=== PATIENT | male | born 1970 | race African-American/Black ===

== ENCOUNTER 2017-01-25 09:55 | Observation (INO) | payer MEDICAID, SELFPAY ==
[2017-01-25 10:50] LABS: #Eosinphils 0.3 thou/uL (0.0-0.7); #Lymphocytes 1.3 thou/uL (1.20-3.40); #Monocytes 0.6 thou/uL (0.11-0.59); #Neutrophils 6.1 thou/uL (1.40-6.50); %Basophils 0.3 % (0.0-1.0); %Eosinophils 3.2 % (0.0-10.0); %Lymphocytes 15.7 % (21.0-51.0); %Monocytes 6.7 % (0.0-10.0); Hematocrit 50.4 % (42.0-52.0); Mean Platelet Volume 6.8 fL (7.4-10.4); White Blood Cell (WBC) Count 8.3 thou/uL (4.8-10.8)
[2017-01-25 10:53] LABS: ALT (SGPT) 21 U/L (8-55); AST (SGOT) 25 U/L (5-34); Alkaline Phosphatase 50 U/L (40-150); Anion Gap 11 mmol/L (10-20); BUN (Urea Nitrogen) 11 mg/dL (8.9-20.6); Bilirubin, Total 0.7 mg/dL (0.2-1.2); CK (CPK) 416 U/L (30-200); Calc. Creatinine Clearance 0 mL/min (70-130); Calcium 9.5 mg/dL (7.8-10.44); Carbon Dioxide 28 mmol/L (22-29); Chloride 102 mmol/L (98-107); Estimated GFR-MDRD Greater than 90; Globulin 3.1 g/dL (2.4-3.5); Lipase 33 U/L (8-78); Protein, Total 7.1 g/dL (6.0-8.3)
[2017-01-25] MEDS ORDERED: Aspirin 325 MG TAB ONE (10:54)
[2017-01-25] MEDS ORDERED: Lorazepam 2 MG/ML VIAL ONE (10:54)
--- NOTE | 2017-01-25 10:54 | RAD ---
FRONTAL VIEW CHEST: Date: 01/25/17 No prior comparison. INDICATION: Chest pain. FINDINGS: No consolidation, effusion, or pneumothorax. Cardiac silhouette is accentuated by portable technique . IMPRESSION: No focal consolidation. POS: ARACELY
[2017-01-25 10:59] LABS: Troponin I Less than 0.010 ng/mL (< 0.028)
[2017-01-25] MEDS ORDERED: Aspirin 300 MG Suppository PR SCH (13:00)
[2017-01-25] MEDS ORDERED: Ondansetron ODT 4 MG TAB PO PRN (13:00)
[2017-01-25] MEDS ORDERED: Acetaminophen 325 MG TAB PO PRN (13:00)
[2017-01-25] MEDS ORDERED: Lorazepam 2 MG/ML VIAL SLOW IVP PRN (13:00)
[2017-01-25 13:20] VITALS: BMI 27.6
[2017-01-25] MEDS: Sodium Chloride 0.9% 1,000 ML IV SCH ×2 (13:23→20:21)
--- NOTE | 2017-01-25 13:57 | HP-2 ---
RESIDENT: Silvestre Haile M.D. ATTENDING: Dr. Silvestre Penn PRIMARY CARE PHYSICIAN: None, city call. CODE STATUS: Unable to obtain secondary to the patient being only arousal for short periods of time secondary to Ativan administration. We will go ahead and place the patient as a full code until ab le to reevaluate the patient further. CHIEF COMPLAINT: Chest pain. HISTORY OF PRESENT ILLNESS: The patient is a 46-year-old male who presents to the ER with his signi ficant other for evaluation of substernal chest pain with associated left arm numbness that occurred at rest at approximately 0800 this morning. The patient is status post administration of Ativan fo r recurrent episode of chest pain in the ER and will only awake and answer questions for short perio ds of time, so the majority of history was taken from ER physician and significant other who is pres ent in room. Reportedly the patient had a recent falling off with his drug use and has been using c ocaine and has been drinking alcohol for approximately the past 48 hours. Per significant other the patient has not slept very much at all during this time. Unsure of any other drug ingestion. Wayne carlota, the patient does have a history of meth use. The patient otherwise has a history of hyperlipid emia, but no history of diabetes, hypertension, or other cardiac history. The patient has no family history of cardiac disease. The chest pain was intermittent in nature, unable to give exact timefr wanda of duration, but has occurred twice since the initial onset. The patient when he is able to awo graham up denies any current chest pain or shoulder pain. In the ER, the patient received 325 mg of aspirin and 1 mg of Ativan. PAST MEDICAL HISTORY: 1. Hyperlipidemia. 2. Substance abuse. MEDICATIONS: None. PAST SURGICAL HISTORY: Appendectomy. FAMILY HISTORY: Noncontributory. No family history of cardiac disease. SOCIAL HISTORY: Significant for illicit drug use with cocaine, meth and amphetamines. The patient smokes approximately 1 cigarette per day and has a significant history of alcohol use. REVIEW OF SYSTEMS: Unable to be obtained at this time secondary to the patient not being able to st ay awake long enough to get adequate review of systems secondary to IV Ativan administration. PHYSICAL EXAMINATION: VITAL SIGNS: Blood pressure 138/94, pulse 77, respiratory rate 15, satting 95% on room air, T-max 9 8.1 degrees Fahrenheit. Weight current 97.07 kg. GENERAL: No acute distress. The patient is alert and oriented x3 when he wakes up; however, only a ble to answer questions for a short period of time before falling back to sleep secondary to medicat ion administration as he was alert and oriented x3 per ER physician prior to medication. EYES: PERRLA, EOMI. Conjunctivae within normal limits. ENT: Moist mucous membranes. CARDIOVASCULAR: Regular rhythm, no murmur. Equal pulses bilaterally. RESPIRATORY: Clear to auscultation bilaterally, no wheezing, rales or rhonchi. Unlabored respirati ons. ABDOMEN: Nontender, nondistended. No guarding. Bowel sounds x4. EXTREMITIES: No swelling, equal movements bilaterally. Evaluation of the shoulder for possible inj ury negative with negative scan. Negative pain with passive range of motion and full range of motio n. SKIN: No rashes or lesions. NEUROLOGIC: Cranial nerves II-XII intact bilaterally. No focal deficits. PSYCH: When patient is awake, appears appropriate, poor judgment. LABORATORY DATA: White blood cells 8.3, hemoglobin 16.3, hematocrit 50.4, platelets 297. Sodium 13 7, potassium 3.9, chloride 102, bicarbonate 28, BUN 11, creatinine 0.99, glucose 95, albumin 4.0, to domenica protein 7.1, total bilirubin 0.7, calcium 9.5, AST 25, ALT 21, alkaline phosphatase 50. Cardiac enzymes: CK 416, CK-MB 4.3, troponin I less than 0.010, lipase 33. EKG: Normal sinus rhythm with slightly poor R-wave progression in the lateral leads, but no signifi cant ST segment changes or signs of ischemia. IMAGING: Chest x-ray, NAD. ASSESSMENT AND PLAN: A 46-year-old male with: 1. Cocaine-induced chest pain rule out ischemia. Likely intermittent chest pain secondary to vaso spasm with known cocaine use. We will go ahead and check a UDS, both urine and serum to evaluate fo r other pill ingestion since patient has a history of methamphetamine use as well and unable to get adequate answers secondary to patient's current status from the Ativan administration. We will admi t to tele observation for now and trend troponins, CK-MBs and EKGs x3 to evaluate for possible ische nicole. We will continue on aspirin 81 mg every day, and check a fasting lipid panel, TSH, and A1c. P atient will have a lower dose of Ativan 0.5 mg p.r.n. for recurrent chest pain, tachycardia, and hyp ertension which will be a contaminant with a repeat episode of vasospasm. We will go ahead and cons ult case management to initiate possible options for outpatient rehab if the patient is interested i n this. We will consider consulting [facility] as well once the patient is medically stable for possible inpatient rehab as the patient is unfunded. We will place a Nicoderm patch. Patient does smoke. E ncourage cessation of drug use to prevent further episodes. 2. Elevated CK. Likely be secondary to #3, we will go ahead and repeat a CK in about 6 hours to en sure the patient is in the early stages of rhabdomyolysis with a contaminant cocaine use. 3. Drug use. We will check serum UDS as well as urine drug screen and give patient counseling on c essation as well as consults as needed for case management and MR if indicated. 4. Code status. Unable to obtain code status at this time; however, will revisit this once the pat ient's Ativan use has weaned off and he is more coherent. We will keep the patient full code status until we are able to clarify this. Symptomatic medications will be provided. History and physical exam as well as management was discussed with Dr. Penn.
[2017-01-25 14:14] LABS: Amphetamine Detected (NotDetected); Methadone Not Detected (NotDetected); Methamphetamine Detected (NotDetected)
[2017-01-25 14:31] LABS: Acetaminophen Less than 6.0 mcg/mL (10.0-30.0); Cholesterol 178 mg/dl (< 200 Desired); LDL Cholesterol, Calculated 89 mg/dL; Salicylate Less than 8.0 mg/dL (15.0-30.0)
[2017-01-25 14:58] LABS: Troponin I 0.012 ng/mL (< 0.028)
[2017-01-25 17:33] LABS: Troponin I Less than 0.010 ng/mL (< 0.028)
[2017-01-25] MEDS ORDERED: Nicotine 7 MG PATCH TD SCH (21:00)
--- NOTE | 2017-01-25 21:25 | HP ---
DATE OF ADMISSION: 01/23/2017 CHIEF COMPLAINT: Chest pain. HISTORY OF PRESENT ILLNESS: This is a 46-year-old male with past history of cocaine use disorder, t obacco use disorder, depression and anxiety who presents after ingestion of cocaine subsequently dev eloped a substernal 8/10 chest pain that he describes as pressure that radiated to the left shoulder with associated left arm numbness. He was not nauseous, but he did say he was a little bit sweaty at that time. He had a subjective sensation of dyspnea later on after the episode they occurred whe n he was just sitting on the bus. Currently, he says he is chest pain free. No shortness of breath or other complaint. In the ED, he was given Ativan and subsequently seemed to improve. REVIEW OF SYSTEMS: A 12-point review of systems is completed and negative except for as per HPI. P lease see the resident's H\T\P for full listing. PAST MEDICAL HISTORY: Positive for cocaine use disorder, tobacco use disorder, depression, anxiety, and hyperlipidemia. PAST SURGICAL HISTORY: Positive for appendectomy. FAMILY HISTORY: Positive for coronary artery disease in several grandparents, but no in the immedia te family. MEDICATIONS: None. ALLERGIES: No known drug allergies. SOCIAL HISTORY: Positive for tobacco and ethanol use. He has been cocaine free for a while and vasu dently has used just recently. PHYSICAL EXAMINATION: VITAL SIGNS: Temperature 98.4, pulse 75, respirations 18, O2 sat 96% on room air, BP 129/79. GENERAL: Constitutionally sleeping comfortably in bed, easily arousable. HEENT: Eyes: No icterus or injection. Pinna normal. Nares patent. Moist mucous membranes. CARDIOVASCULAR: Regular rate and rhythm without murmur, gallop or rub. No carotid bruit. No perip heral edema. LUNGS: Clear to auscultation bilaterally without increased work of breathing. No wheezes, rales or rhonchi. GASTROINTESTINAL: Bowel sounds positive. Nontender to palpation. No palpable organomegaly. GENITOURINARY: Deferred. MUSCULOSKELETAL: Without deformity or contracture. SKIN: He has several old scars including healed appendectomy scar. NEUROLOGIC: Cranial nerves II-XII intact and symmetric. Motor 5/5 throughout. Sensation intact to light touch in all 4 extremities. PSYCHIATRIC: Positive for depression and anxiety. Alert and oriented x4. Mood and affect appear t o be appropriate with current medical condition and social stressors. LABORATORY DATA: White blood cell count 8.3, hemoglobin 16.3, platelets 297. CMP normal with a cre atinine of 0.99, creatinine kinase of 416. Initial troponin less than 0.01. Chest x-ray no acute p rocess, which I have reviewed it personally. ASSESSMENT AND PLAN: This 46-year-old male with, 1. Suspect cocaine-induced chest pain. However, we will go ahead and rule out for ACS and stress i n the morning. Place him on aspirin hydrate and statin if necessary. 2. Rhabdomyolysis, suspect secondary to cocaine use. However, we will trend hydrate and monitor cr eatinine and CK levels and statin if tolerated. We will send a TSH in the morning. 3. Obesity. Recommend weight loss and exercise. 4. Tobacco use. Recommend cessation counseled in detail. He can use the nicotine patch after seco nd negative troponin. 5. Cocaine use disorder. Recommend cessation and counseling. 6. Deep venous thrombosis prophylaxis with Lovenox. 7. Gastrointestinal prophylaxis with diet.
[2017-01-26] MEDS: Sodium Chloride 0.9% 1,000 ML IV SCH (02:54)
[2017-01-26 05:22] LABS: Anion Gap 10 mmol/L (10-20); BUN (Urea Nitrogen) 14 mg/dL (8.9-20.6); Calc. Creatinine Clearance 136 mL/min (70-130); Calcium 9.4 mg/dL (7.8-10.44); Carbon Dioxide 26 mmol/L (22-29); Chloride 106 mmol/L (98-107); Estimated GFR-MDRD Greater than 90
--- NOTE | 2017-01-26 08:24 | PDOC.FM ---
- Subjective Subjective: DAXA overnight, no further episodes of chest pain. Pt states he wants to persue outpatient rehab. VSS, afebrile. NSR on tele overnight. - Objective MAR Reviewed: Yes Vital Signs & Weight: Vital Signs (12 hours) Temp Pulse Resp BP Pulse Ox 01/26/17 07:48 98.9 F 71 16 107/65 98 01/26/17 04:00 98.4 F 55 L 16 100/56 L 97 01/26/17 03:57 95 Weight Weight 93.157 kg I&O: 01/25/17 01/26/17 01/27/17 06:59 06:59 06:59 Intake Total 3962 Output Total 300 Balance 3662 Result Diagrams: 01/25/17 10:20 01/26/17 04:09 <Silvestre Haile - Last Filed: 01/26/17 08:22> - Objective Vital Signs & Weight: Vital Signs (12 hours) Temp Pulse Resp BP Pulse Ox 01/26/17 07:48 98.9 F 71 16 107/65 98 01/26/17 04:00 98.4 F 55 L 16 100/56 L 97 01/26/17 03:57 95 Weight Weight 93.157 kg I&O: 01/25/17 01/26/17 01/27/17 06:59 06:59 06:59 Intake Total 3962 Output Total 300 Balance 3662 Result Diagrams: 01/25/17 10:20 01/26/17 04:09 <Ender Jaffe - Last Filed: 01/26/17 10:20> Phys Exam - Physical Examination Constitutional: NAD Respiratory: no wheezing, clear to auscultation bilateral Cardiovascular: RRR Gastrointestinal: positive bowel sounds Musculoskeletal: no edema Neurological: normal sensation, moves all 4 limbs Lymphatic: no nodes Psychiatric: normal affect, A&O x 3 Skin: cap refill <2 seconds <Silvestre Haile - Last Filed: 01/26/17 08:22> Dx/Plan (1) Chest pain Code(s): R07.9 - CHEST PAIN, UNSPECIFIED Status: Acute Qualifiers: Chest pain type: other chest pain Qualified Code(s): R07.89 - Other chest pain; R07.8 - Other chest pain Plan: Likely 2/2 cocaine induced vasospasm in setting of illicit drug use Pt NSR w/o signs of ischemia on EKG x3 and normal trop and CK-mb x 3 No recurrence of chest pain Lipids WNL, not in a statin benefit group w/ ASCVD 10 year at 4.6% Cont. w/ ASA 81 mg q day Counseled on cessation of drug use to prevent recurrence. Pt being seen by [facility] and CM consult for outpatient rehab possibilities HEART score of 1 w/ likely source in cocaine use for chest pain (2) Elevated CK Status: Acute Plan: Likely 2/2 illicit substance use Downtrending s/p IVF administration No need for continued monitoring w/ patient resuming normal PO intake Levels not elevated enough for rhabdo and pt w/ normal renal function (3) Cocaine use Code(s): F14.10 - COCAINE ABUSE, UNCOMPLICATED Status: Acute Plan: Counseled on quitting Pt states that he is interested in outpatient rehabilitiation Already beeing seen by [facility] outpatient CM consulted for possibilities <Silvestre Haile - Last Filed: 01/26/17 08:22> Attending Addendum - Attending Addendum I personally evaluated the patient and discussed the management with Dr. Haile. I agree with the History, Examination, Assessment and Plan documented above with any addition or exceptions noted below. Patient with episodes of chest pain that occurred at rest and seem to be associated with a significant amount of stress/anxiety, as well as recent drug use. Patient has been ruled out for ACS with cardiac enzymes, and repeat EKGs show no evidence of infarction or ischemic change. His EKG does show very subtle 1st degree AV block (ND-212), but this was not present on admission or on second EKG. Unlikely to be true block. Patient risk scoring shows low suspicion for cardiac nature pain. No stress testing at this time. Have advised he seek out care in outpt setting and also seek drug rehab facility. He is stable for discharge home. <Ender Jaffe - Last Filed: 01/26/17 10:20>
[2017-01-26] MEDS ORDERED: Aspirin 81 mg Enteric Coated Tablet PO SCH (09:00)
[2017-01-26 11:24] VITALS: BP 124/86; TEMP 98.6
[2017-01-26] MEDS ORDERED: Nicotine 7 MG PATCH TD SCH (21:00)
--- NOTE | 2017-01-27 10:05 | DIS-2 ---
DATE OF ADMISSION: 01/25/2017 DATE OF DISCHARGE: 01/26/2017 ADMITTING ATTENDING: Silvestre Penn M.D. DISCHARGE ATTENDING: Ender Jaffe M.D. RESIDENT: Silvestre Haile M.D. CONSULTATIONS: [facility]. PROCEDURES: None. PRIMARY DIAGNOSIS: Cocaine-induced chest pain. SECONDARY DIAGNOSIS: Tobacco use. DISCHARGE MEDICATIONS: None. DISCONTINUED MEDICATIONS: None. HISTORY OF PRESENT ILLNESS: The patient is a 46-year-old male with history of polysubstance abuse w ho presented to the ER for evaluation of acute onset of substernal chest pain and left arm numbness that started earlier that day at rest. The patient said that he had an episode that was transient a nd then resolves on route to ER. Upon arrival, the patient with normal initial set of troponins and normal EKG. The patient again had chest pain and was given 1 mg of Ativan secondary to endorse use of cocaine, but 2 days prior. The patient had improvement in symptoms after this and was admitted to observation for further evaluation. Troponins and CK-MB and EKG x3 obtained, all within normal l imits. The patient did have a slightly prolonged NC interval at 212, only of present on third EKG, unsure of exact etiology, but could be secondary to lead placement. The patient has not had any rec urrence of this chest pain. Prior to planned discharge, family who was present endorse that patient was having some suicidal ideations, so [facility] was consulted and safety contract was made with patient prior to discharge home. The patient had a heart score of 1 and no stress was indicated at this ti me with likely diagnosis of chest pain in the setting of cocaine and methamphetamine use. The patie nt had no signs of acute ischemia on EKG or enzymes. The patient is to follow up in the outpa tient setting for further evaluation of this transient NC prolongation and was given information for a free clinic as he is uninsured. DISPOSITION: Stable. DISCHARGE INSTRUCTIONS: 1. Location: Home. 2. Followup: Follow up with primary care provider in 7-10 days. Information for [facility] given discharge instructions. 3. Activity: Cardiopulmonary limits.
--- NOTE | 2017-01-29 13:27 | EKG ---
Test Reason : TIME Blood Pressure : / mmHG Vent. Rate : 074 BPM Atrial Rate : 074 BPM P-R Int : 188 ms QRS Dur : 082 ms QT Int : 392 ms P-R-T Axes : 047 086 048 degrees QTc Int : 435 ms Normal sinus rhythm with sinus arrhythmia Normal ECG No previous ECGs available Confirmed by JOSE WYNNE ([id number]) on 01/29/2017 1:27:15 PM Referred By: HILLARY Confirmed By:JOSE WYNNE
--- NOTE | 2017-01-29 13:32 | EKG ---
Test Reason : Blood Pressure : / mmHG Vent. Rate : 065 BPM Atrial Rate : 065 BPM P-R Int : 212 ms QRS Dur : 078 ms QT Int : 408 ms P-R-T Axes : 037 045 032 degrees QTc Int : 424 ms Poor data quality, interpretation may be adversely affected Sinus rhythm with sinus arrhythmia with 1st degree A-V block Abnormal ECG Confirmed by JOSE WYNNE ([id number]) on 01/29/2017 1:31:47 PM Referred By: LULU Confirmed By:JOSE WYNNE
--- NOTE | 2017-01-29 15:52 | EKG ---
Test Reason : Blood Pressure : / mmHG Vent. Rate : 068 BPM Atrial Rate : 068 BPM P-R Int : 196 ms QRS Dur : 080 ms QT Int : 408 ms P-R-T Axes : 059 051 054 degrees QTc Int : 433 ms Normal sinus rhythm ST elevation, consider early repolarization Borderline ECG Confirmed by JOSE WYNNE ([id number]) on 01/29/2017 3:51:51 PM Referred By: HILLARY Confirmed By:JOSE WYNNE
== END 2017-01-26 14:28 | disposition home or self-care (01) ==
LOC: ERS 09:55 → 2SW 11:21
PROVIDERS: ADMIT Internal Medicine; ATTEND Internal Medicine
DX: R07.89 Other chest pain (principal); F14.10 Cocaine abuse, uncomplicated; F17.210 Nicotine dependence, cigarettes, uncomplicated; E78.5 Hyperlipidemia, unspecified; Z79.899 Other long term (current) drug therapy; Z90.49 Acquired absence of other specified parts of digestive tract
CPT/HCPCS: 36415; 71010; 80048; 80053; 80061; 80306; 80307; 82550; 82553; 83690; 84443; 84484; 85025; 93005; 93010; 94760; 96361; 96374; A4216; G0378; J2060

== ENCOUNTER 2020-05-17 11:05 | Emergency (ER) | payer SELFPAY ==
[2020-05-17 11:51] LABS: #Basophils 0.1 thou/uL (0.0-0.2); #Eosinphils 0.5 thou/uL (0.0-0.7); #Lymphocytes 2.1 thou/uL (1.20-3.40); #Monocytes 0.5 thou/uL (0.11-0.59); #Neutrophils 2.4 thou/uL (1.40-6.50); %Eosinophils 9.6 % (0.0-10.0); %Lymphocytes 37.8 % (21.0-51.0); %Monocytes 9.2 % (0.0-10.0); %Neutrophils 42.5 % (42.0-75.0); Hemoglobin 15.3 g/dL (14.0-18.0); Mean Corpuscular Hemoglobin 29.5 pg (27.0-31.0); Mean Corpuscular Volume 92.2 fL (78.0-98.0); Platelet Count 234 thou/uL (130-400); RBC Distribution Width 13.1 % (11.5-14.5); Red Blood Cell (RBC) Count 5.17 mill/uL (4.70-6.10); White Blood Cell (WBC) Count 5.6 thou/uL (4.8-10.8)
[2020-05-17 12:22] LABS: Acetaminophen Less than 6.0 mcg/mL (10.0-30.0); Alcohol Less than 10 mg/dL (Less than 10); CK (CPK) 1048 U/L (30-200); Salicylate Less than 8.0 mg/dL (15.0-30.0)
[2020-05-17 12:23] LABS: ALT (SGPT) 18 U/L (8-55); AST (SGOT) 33 U/L (5-34); Albumin 3.5 g/dL (3.5-5.0); Alkaline Phosphatase 39 U/L (40-110); Anion Gap 11 mmol/L (10-20); BUN (Urea Nitrogen) 10 mg/dL (8.9-20.6); Bilirubin, Total 0.8 mg/dL (0.2-1.2); Calc. Creatinine Clearance 0 mL/min (70-130); Calcium 8.7 mg/dL (7.8-10.44); Carbon Dioxide 30 mmol/L (22-29); Chloride 102 mmol/L (98-107); Globulin 2.4 g/dL (2.4-3.5); Glucose 92 mg/dL (70-105); Potassium 4.4 mmol/L (3.5-5.1); Protein, Total 5.9 g/dL (6.0-8.3); Sodium 139 mmol/L (136-145)
[2020-05-17 13:18] LABS: Bilirubin Negative (Negative); Blood, Urine Negative (Negative); Clarity Clear (Clear); Glucose, Urine (Dipstick) Normal (Negative); Ketone, Urine 10 mg/dL (Negative); Leukocyte Negative Leu/uL (Negative); Nitrite Negative (Negative); Protein, Urine (Dipstick) Negative (Neg-Trace); Urobilinogen Normal mg/dL (Less than 2)
[2020-05-17 13:24] LABS: Amphetamine Detected (NotDetected); Cocaine Metabolite Screen Detected (NotDetected); Medtox Reader # READER 4; Methamphetamine Detected (NotDetected); Opiate Screen Not Detected (NotDetected); Phencyclidine (PCP) Not Detected (NotDetected); THC/Cannabinoid Screen Not Detected (NotDetected)
[2020-05-17 13:25] LABS: Barbiturates Screen Not Detected (NotDetected); Benzodiazepine Screen Not Detected (NotDetected); Medtox Control Line Valid? VALID (VALID); Methadone Not Detected (NotDetected); Oxycodone Screen Not Detected (NotDetected); Tricyclic Screen Not Detected (NotDetected)
== END 2020-05-17 16:24 | disposition left against medical advice (07) ==
LOC: ERS 11:05
DX: R44.1 Visual hallucinations (principal); F17.210 Nicotine dependence, cigarettes, uncomplicated
CPT/HCPCS: 36415; 80053; 80306; 80307; 81003; 82550; 84443; 85025; 93005; 94760

== ENCOUNTER 2020-11-22 13:37 | Emergency (ER) | payer SELFPAY | END 2020-11-22 15:10 | disposition home or self-care (01) | LOC: ERS 13:37 | DX: R10.9 Unspecified abdominal pain (principal); F17.210 Nicotine dependence, cigarettes, uncomplicated | CPT/HCPCS: 99283 ==

== ENCOUNTER 2021-08-13 22:31 | Emergency (ER) | payer SELFPAY ==
[2021-08-13] MEDS ORDERED: Lorazepam 2 MG/ML VIAL ONE (23:11)
[2021-08-13] MEDS ORDERED: diphenhydrAMINE 50 MG/ML VIAL ONE (23:12)
[2021-08-13] MEDS ORDERED: Haloperidol Lactate 5 MG/ML VIAL ONE (23:12)
[2021-08-13 23:18] LABS: #Basophils 0.1 thou/uL (0.0-0.2); #Eosinphils 0.1 thou/uL (0.0-0.7); #Lymphocytes 1.9 thou/uL (1.20-3.40); #Monocytes 0.6 thou/uL (0.11-0.59); #Neutrophils 6.2 thou/uL (1.40-6.50); %Basophils 0.7 % (0.0-1.0); %Eosinophils 0.9 % (0.0-10.0); %Lymphocytes 21.9 % (21.0-51.0); %Monocytes 6.8 % (0.0-10.0); %Neutrophils 69.6 % (42.0-75.0); Hemoglobin 16.4 g/dL (14.0-18.0); Mean Corpuscular HGB CONC 31.6 g/dL (32.0-36.0); Mean Corpuscular Hemoglobin 29.9 pg (27.0-31.0); Mean Corpuscular Volume 94.7 fL (78.0-98.0); Platelet Count 304 thou/uL (130-400); RBC Distribution Width 13.1 % (11.5-14.5); Red Blood Cell (RBC) Count 5.48 mill/uL (4.70-6.10); White Blood Cell (WBC) Count 8.9 thou/uL (4.8-10.8)
[2021-08-13 23:54] LABS: ALT (SGPT) 222 U/L (8-55); AST (SGOT) 81 U/L (5-34); Albumin 4.8 g/dL (3.5-5.0); Alkaline Phosphatase 64 U/L (40-110); Anion Gap 19 mmol/L (10-20); BUN (Urea Nitrogen) 16 mg/dL (8.9-20.6); Bilirubin, Total 1.5 mg/dL (0.2-1.2); CK (CPK) 225 U/L (30-200); Calc. Creatinine Clearance 0 mL/min (70-130); Calcium 10.6 mg/dL (7.8-10.44); Carbon Dioxide 27 mmol/L (22-29); Chloride 101 mmol/L (98-107); Globulin 4.7 g/dL (2.4-3.5); Glucose 107 mg/dL (70-105); Potassium 4.7 mmol/L (3.5-5.1); Protein, Total 9.5 g/dL (6.0-8.3); Sodium 142 mmol/L (136-145)
[2021-08-13 23:57] LABS: Acetaminophen Less than 10.0 mcg/mL (10.0-30.0); Alcohol Less than 10 mg/dL (Less than 10); Salicylate Less than 8.0 mg/dL (15.0-30.0)
[2021-08-14 00:11] LABS: Bilirubin 1+ (Negative); Blood, Urine Negative (Negative); Clarity Turbid (Clear); Glucose, Urine (Dipstick) Normal (Negative); Ketone, Urine 20 mg/dL (Negative); Leukocyte Negative Leu/uL (Negative); Nitrite Negative (Negative); Protein, Urine (Dipstick) 50 mg/dL (Neg-Trace); Specific Gravity, Urine 1.035 (1.002-1.036); Squamous Epithelial 0-3 HPF (0-3); Urobilinogen 3 mg/dL (Less than 2)
[2021-08-14 00:16] LABS: Amphetamine Detected (NotDetected); Bacteria/HPF 1+ HPF (None Seen); Barbiturates Screen Not Detected (NotDetected); Benzodiazepine Screen Not Detected (NotDetected); Cocaine Metabolite Screen Not Detected (NotDetected); Methadone Not Detected (NotDetected); Methamphetamine Detected (NotDetected); Opiate Screen Not Detected (NotDetected); Oxycodone Screen Not Detected (NotDetected); Phencyclidine (PCP) Not Detected (NotDetected); THC/Cannabinoid Screen Not Detected (NotDetected); Tricyclic Screen Not Detected (NotDetected)
== END 2021-08-14 19:30 | disposition home or self-care (01) ==
LOC: ERS 22:31
DX: F43.20 Adjustment disorder, unspecified (principal); F17.210 Nicotine dependence, cigarettes, uncomplicated
CPT/HCPCS: 36415; 80053; 80306; 80307; 81003; 81015; 82550; 84443; 85025; 96372; 99285; J1200; J1630; J2060

== ENCOUNTER 2023-03-16 16:28 | Emergency (ER) | payer MEDICAID, OTHER, SELFPAY ==
[2023-03-16] MEDS ORDERED: LORazepam 2 MG/ML SYR.(CARPUJECT) ONE (16:54)
[2023-03-16 17:43] LABS: #Eosinphils 0.4 thou/uL (0.0-0.7); #Monocytes 0.5 thou/uL (0.11-0.59); #Neutrophils 3.2 thou/uL (1.40-6.50); %Basophils 0.6 % (0.0-1.0); %Lymphocytes 33.5 % (21.0-51.0); %Monocytes 8.8 % (0.0-10.0); %Neutrophils 51.1 % (42.0-75.0); Hematocrit 43.5 % (42.0-52.0); Hemoglobin 14.3 g/dL (14.0-18.0); Mean Corpuscular HGB CONC 32.9 g/dL (32.0-36.0); Mean Corpuscular Hemoglobin 28.9 pg (27.0-31.0); Mean Corpuscular Volume 88.1 fl (78.0-98.0); Mean Platelet Volume 9.1 fL (7.4-10.4); Platelet Count 238 10x3/uL (130-400); RBC Distribution Width 12.9 % (11.5-14.5); Red Blood Cell (RBC) Count 4.94 mill/uL (4.70-6.10); White Blood Cell (WBC) Count 6.2 10x3/uL (4.8-10.8)
[2023-03-16 18:05] LABS: Troponin I Less than 0.010 ng/mL (< 0.028)
[2023-03-16 18:06] LABS: ALT (SGPT) 23 U/L (8-55); AST (SGOT) 25 U/L (5-34); Acetaminophen Less than 10 mcg/mL (10.0-30.0); Albumin 3.8 g/dL (3.5-5.0); Alcohol Less than 10.0 mg/dL (Less than 10); Alkaline Phosphatase 41 U/L (40-110); Anion Gap 14 mmol/L (10-20); BUN (Urea Nitrogen) 7 mg/dL (8.4-25.7); Calc. Creatinine Clearance 0 mL/min (70-130); Calcium 9.1 mg/dL (7.8-10.44); Carbon Dioxide 25 mmol/L (22-29); Chloride 102 mmol/L (98-107); Estimated GFR 104; Globulin 3.2 g/dL (2.4-3.5); Glucose 81 mg/dL (70-105); Lipase 44 U/L (8-78); Potassium 3.5 mmol/L (3.5-5.1); Salicylate Less than 8.0 mg/dL (15.0-30.0); Sodium 137 mmol/L (136-145)
== END 2023-03-17 07:25 | disposition home or self-care (01) ==
LOC: ERS 16:28
DX: F15.10 Other stimulant abuse, uncomplicated (principal); F17.210 Nicotine dependence, cigarettes, uncomplicated
CPT/HCPCS: 36415; 71045; 80053; 80307; 83605; 83690; 84484; 85025; 93005; 96361; 96374; J2060

== ENCOUNTER 2023-03-22 18:32 | Emergency (ER) | payer OTHER ==
[2023-03-22 19:27] LABS: #Basophils 0.1 thou/uL (0.0-0.2); #Eosinphils 0.6 thou/uL (0.0-0.7); #Monocytes 0.6 thou/uL (0.11-0.59); #Neutrophils 3.1 thou/uL (1.40-6.50); %Basophils 0.7 % (0.0-1.0); %Eosinophils 8.8 % (0.0-10.0); %Neutrophils 44.4 % (42.0-75.0); Hematocrit 42.7 % (42.0-52.0); Hemoglobin 13.6 g/dL (14.0-18.0); Mean Corpuscular HGB CONC 31.9 g/dL (32.0-36.0); Mean Platelet Volume 9.1 fL (7.4-10.4); Platelet Count 253 10x3/uL (130-400); RBC Distribution Width 13.7 % (11.5-14.5); Red Blood Cell (RBC) Count 4.69 mill/uL (4.70-6.10)
[2023-03-22 19:57] LABS: ALT (SGPT) 23 U/L (8-55); AST (SGOT) 19 U/L (5-34); Albumin 3.6 g/dL (3.5-5.0); Alkaline Phosphatase 36 U/L (40-110); Anion Gap 10 mmol/L (10-20); BUN (Urea Nitrogen) 15 mg/dL (8.4-25.7); Bilirubin, Total 0.3 mg/dL (0.2-1.2); Calc. Creatinine Clearance 0 mL/min (70-130); Calcium 9.3 mg/dL (7.8-10.44); Carbon Dioxide 31 mmol/L (22-29); Chloride 106 mmol/L (98-107); Estimated GFR 92; Globulin 2.9 g/dL (2.4-3.5); Glucose 90 mg/dL (70-105); Potassium 4.7 mmol/L (3.5-5.1); Protein, Total 6.5 g/dL (6.0-8.3); Sodium 142 mmol/L (136-145)
[2023-03-22 20:00] LABS: Troponin I Less than 0.010 ng/mL (< 0.028)
== END 2023-03-22 20:22 ==
LOC: ERS 18:32
DX: R07.89 Other chest pain (principal); F15.10 Other stimulant abuse, uncomplicated; F17.210 Nicotine dependence, cigarettes, uncomplicated
CPT/HCPCS: 36415; 71045; 80053; 84484; 85025; 93005

== ENCOUNTER 2023-08-30 01:24 | Emergency (ER) | payer OTHER ==
[2023-08-30] MEDS ORDERED: Lidocaine 1% w/Epinephrine 1:100K 20 ML VIAL ONE (03:35)
[2023-08-30] MEDS ORDERED: Boostrix 0.5 ML (Tdap) VIAL (>/=7 yrs of age) ONE (03:35)
== END 2023-08-30 05:40 ==
LOC: EEVIPCON 01:24 → ERS 01:24
DX: S01.511A Laceration without foreign body of lip, initial encounter (principal); M79.675 Pain in left toe(s); F17.210 Nicotine dependence, cigarettes, uncomplicated; Z23 Encounter for immunization; W22.8XXA Striking against or struck by other objects, initial encounter
CPT/HCPCS: 12001; 70486; 90471; 90715